=== PATIENT | female | born 1965 | race Two or more races ===

== ENCOUNTER 2024-05-14 13:18 | Outpatient (AMB) | payer MEDICARE, MEDICAID, SELFPAY ==
[2024-05-14 13:47] VITALS: BP 87/65; PULSE 80; RESP 19; TEMP 36.1; O2SAT 98; BMI 33.5
--- NOTE | 2024-05-14 13:47 | ORTHONT_ITS ---
Vital signs 05/14/24 13:47 Height 1.7 m Height Method Stated Weight 96.757 kg Weight Measurement Method Standing Scale BMI 33.5 BP 87/65 L Blood Pressure Source Automatic Cuff Blood Pressure Location Right Upper Arm Position Sitting Respiration 19 Pulse 80 Pulse Source Monitor Temp 96.9 F Temp Source Temporal Artery Scan Pulse Oximetry (%) 98 Oxygen Delivery Method Room Air Med/Allergies Allergies & Medications Allergies tramadol Allergy (Mild, Verified 05/14/24 13:47) TWITCHING AND ITCHING Medication Reconciliation levothyroxine 25 mcg tablet 75 mcg PO QDAY 04/02/21 [History Confirmed 05/14/24] sacubitril 24 mg-valsartan 26 mg tablet (Entresto) 1 tab PO BID 04/02/21 [History Confirmed 05/14/24] furosemide 40 mg tablet 40 mg PO BID #60 tabs 05/05/21 [Rx Confirmed 05/14/24] cyclobenzaprine 5 mg tablet 5 mg PO QHS 01/19/23 [History Confirmed 05/14/24] apixaban 5 mg tablet (Eliquis) 5 mg PO BID #30 tabs 06/15/23 [Rx Confirmed 05/14/24] metoprolol succinate 100 mg tablet,extended release 24 hr 100 mg PO QDAY #30 tabs 06/15/23 [Rx Confirmed 05/14/24] amiodarone 200 mg tablet 200 mg PO DAILY 09/21/23 [History Confirmed 05/14/24] atorvastatin 20 mg tablet 20 mg PO HS 09/21/23 [History Confirmed 05/14/24] dapagliflozin propanediol 10 mg tablet (Farxiga) 10 mg PO QDAY 09/21/23 [History Confirmed 05/14/24] gabapentin 100 mg capsule 100 mg PO HS 09/21/23 [History Confirmed 05/14/24] omeprazole 20 mg capsule,delayed release 20 mg PO DAILY 09/21/23 [History Confirmed 05/14/24] rimegepant 75 mg disintegrating tablet (Nurtec ODT) 75 mg PO Q OTHER DAY 09/21/23 [History Confirmed 05/14/24] spironolactone 25 mg tablet 12.5 mg PO DAILY 09/21/23 [History Confirmed 05/14/24] terconazole 0.4 % vaginal cream 1 appful vaginal QHS 12/25/23 [History Confirmed 05/14/24] Exam Exam Patient is in no acute distress and is cooperative with the examination today. Breathing is nonlabored. In no respiratory distress. Bilateral extremities were evaluated and demonstrates sensation intact to light touch. Palpable pedal pulses are present. No significant edema is present. Bilateral hips were examined. The patient has no pain with log roll of the hips. Internal rotation to 30 degrees and external rotation to 30 degrees is painless. Negative FADIR. The left knee wasexamined. The left knee is in neutral alignment. Range of motion from 0-120 degrees. Knee is stable to varus and valgus as well as AP translation with <5mm. Patient has a negative McMurrays. There is no pain with patellofemoral compression and no crepitus noted. The knee is tender to palpation diffusely. The right knee was also examined. The right knee is in neutral alignment. Range of motion from 0-120 degrees. Knee is stable to varus and valgus as well as AP translation with <5mm. Patient has a negative McMurrays. There is no pain with patellofemoral compression and no crepitus noted. The knee is tender to palpation diffusely. X-rays were reviewed by me. This demonstrates mild joint space narrowing osteoarthritis. There is a ACL screw on the tibia Assessment and Plan Problem List (1) Bilateral primary osteoarthritis of knee: Status: Acute Plan: Patient is a 58-year-old female with mild knee osteoarthritis. She has done well conservative treatment. We will continue with nonoperative treatment. We Will start with her with physical therapy and have given her anti-inflamm atories. We recommend continued nonoperative treatment. I discussed with her that she has minimal arthritis in her knee looks pretty good for her age. She still functioning well. (2) Bilateral knee pain: Status: Acute MA Intake Visit Data Collection New Patient or Established: Established Patient (seen at [facility] within 3 years) Reason for Visit:: F/U XRAYS Seen by Clinical Staff ONLY (RN/MA): No Verbal consent obtained for Telemed visit?: No Internet Marketing Intern Required: No PCP or OBGYN visit in last 3 months: Yes Hx Now: No Do You Feel Safe at Home: Yes Authorities Contacted: N/A Questionairres Past Medical History Past Medical History Have you ever been diagnosed with any of the following: Neurological Problems Seizures: No Cardiology Problems Hypercholesterolemia: Yes Congestive Heart Failure: Yes Edema: No Cellulitis: No Hypertension: Yes Respiratory Problems Chronic Obstructive Pulmonary Disease (COPD): No Asthma: No Tuberculosis: No Sleep Apnea: No Stomache/Intestinal Problems Hepatitis: Yes Gastroesophageal Reflux Disease: Yes Genital/Urinary Problems Renal Disease: No Reproductive Problems Pelvic Inflammatory Disease: No Musculoskeletal Problems Arthritis: Yes Carpal Tunnel Syndrome: Yes Endocrine Problems Diabetes Mellitus Type 1: No Diabetes Mellitus Type 2: Yes Blood Problems Anemia: No Sickle Cell Disease: No Other Problems Hospitalization: No Falls: No Blood Transfusions: No Anesthesia Reactions: No Chicken Pox: Yes Cancer: No Surgical History Pacemaker: Yes Thyroidectomy: Yes Subjective Visit Visit for: follow up visit and knee Immunization / Flu Flu Vaccine in the Last 12 Months: No Flu Vaccine Exclusion Criteria: No Exclusion Criteria History of Present Illness Chief complaint: F/U KNEE PAIN & XRAYS Patient is doing well. She has minimal arthritis. She did well with the last cortisone injection. The pain is minimal and she is here for x-ray results Personal History Red flag PMH: BMI and other (specify) (PACEMAKER) BMI Counceling provided: Yes Pain Pain level (0-10): 3 Pain duration: COMES AND GOES Pain location: inside (medial) and outside (lateral) Pain quality: dull and aching Ambulatory data Ambulatory device: none Treatments Improvement with previous injections: No Improvement with PT: No Improvement with NSAIDS: no Review of Systems Review of Systems: All systems negative unless otherwise noted in HPI.
== END 2024-05-14 14:02 | disposition home or self-care (01) ==
LOC: HODSRG 13:18
PROVIDERS: PCP Internal Medicine; Referring Provider Internal Medicine; Supervising Provider Orthopaedic Surgery Adult Reconstructive Orthopaedic Surgery; Visit Provider Orthopaedic Surgery Adult Reconstructive Orthopaedic Surgery
DX: M17.0 Bilateral primary osteoarthritis of knee (principal); E78.00 Pure hypercholesterolemia, unspecified; I11.0 Hypertensive heart disease with heart failure; I50.9 Heart failure, unspecified; E11.9 Type 2 diabetes mellitus without complications; Z95.0 Presence of cardiac pacemaker
CPT/HCPCS: 99213; G0463

== ENCOUNTER → 2024-05-14 | Outpatient (CLI) | payer MEDICARE, MEDICAID, SELFPAY ==
--- NOTE | 2024-05-14 | XR_ITS ---
Examination: Uterus 2 views Right lateral knee 2 views Right axial knee left axial knee 2 views Technique: Bilateral AP knees standing single view, bilateral PA knees standing single view. Standing right lateral knee left lateral knee 2 views Right axial knee left axial knee 2 views total 6 views Exam date and time: May 14, 2024 and 50 hours Indications: Bilateral knee pain years Findings: Moderate osteopenia Mild narrowing medial joint spaces Status post anterior cruciate repair left knee Mild to moderate osteoarthritis patellofemoral joints Impression: Mild narrowing medial joint spaces Mild to moderate osteoarthritis patellofemoral joints
== END | disposition home or self-care (01) ==
PROVIDERS: PCP Internal Medicine; Referring Provider Orthopaedic Surgery Adult Reconstructive Orthopaedic Surgery; Visit Provider Orthopaedic Surgery Adult Reconstructive Orthopaedic Surgery
DX: M17.0 Bilateral primary osteoarthritis of knee (principal); M25.869 Other specified joint disorders, unspecified knee
CPT/HCPCS: 73564

== ENCOUNTER → 2024-05-20 | Outpatient (CLI) | payer MEDICARE, MEDICAID, SELFPAY ==
[2024-05-20 10:25] LABS: Glucose Estimated Average 174 mg/dL (80-131); Hemoglobin A1C 7.7 % Hgb (4.8-6.0)
[2024-05-20 10:50] LABS: Vitamin B12 495 pg/mL (211-911); Vitamin D 25 Hydroxy Total 27.9 ng/mL (7.3-40.2)
[2024-05-20 10:59] LABS: Alanine Aminotransferase 81 U/L (10-49); Albumin, Serum 4.1 gm/dL (3.5-5.0); Alkaline Phosphatase 152 U/L (46-116); Anion Gap 10 (7-16); Aspartate Amino Transferase 127 U/L (0-34); BUN/Creatinine Ratio 9 Ratio (12-20); Bilirubin,Direct 0.1 mg/dL (0.0-0.3); Bilirubin,Total 0.4 mg/dL (0.3-1.2); Blood Urea Nitrogen 14 mg/dL (9-23); Carbon Dioxide 26.5 mMol/L (20.0-31.0); Cardiac Risk Estimate 5.1 RATIO (3.7-5.6); Chloride 100 mMol/L (98-107); Cholesterol 152 mg/dL (132-200); Creatinine (Component) 1.5 mg/dL (0.6-1.3); Free T4 (Free Thyroxine) 1.61 ng/dL (0.89-1.76); Glucose 173 mg/dL (74-106); HDL Cholesterol 30 mg/dL (40-60); LDL Cholesterol,Calculated 74 mg/dL (0-130); Osmolality,Calculated 276 (275-295); Potassium 4.2 mMol/L (3.4-5.1); Sodium 136 mMol/L (136-145); Thyroid Stimulating Hormone 1.85 uIU/mL (0.55-4.78); Total Protein 7.3 gm/dL (5.7-8.2); Triglycerides 242 mg/dL (30-150); Uric Acid 5.4 mg/dL (3.1-7.8); eGFR 40 See Note
[2024-05-20 11:11] LABS: Creatinine MALB Rnd Ur 128 mg/dL (30-125); Microalbumin, Random Urine < 3 mg/L (0-300)
== END | disposition home or self-care (01) ==
LOC: COPL 09:05
PROVIDERS: PCP Internal Medicine; Referring Provider Internal Medicine; Visit Provider Internal Medicine
DX: I12.9 Hypertensive chronic kidney disease with stage 1 through stage 4 chronic kidney disease, or unspecified chronic kidney disease (principal); E11.22 Type 2 diabetes mellitus with diabetic chronic kidney disease; N18.30 Chronic kidney disease, stage 3 unspecified; E78.5 Hyperlipidemia, unspecified; D51.9 Vitamin B12 deficiency anemia, unspecified; E55.9 Vitamin D deficiency, unspecified
CPT/HCPCS: 36415; 80048; 80061; 80076; 82043; 82306; 82570; 82607; 83036; 84100; 84439; 84443; 84550

== ENCOUNTER → 2024-06-05 | Outpatient (CLI) | payer MEDICARE, MEDICAID, SELFPAY ==
--- NOTE | 2024-06-05 13:00 | XR_ITS ---
Examination: Bone densitometry Date and time of exam:June 05, 2024 1344 hours INDICATIONS: Menopause age 50, diabetic Technique: Lumbar spine and hip total bone mineralization values of an calculated. Peak reference and age match control results have been displayed. Findings: Lumbar spine total bone mineralization is1.262 gm/cm2. This is 2.0 standard deviations above peak reference. This is 3.2 standard deviations above age-matched controls. Hip total bone mineralization is 1.127 gm/cm2 This is 2 standard deviations above peak reference. This is 2.1 standard deviations above age-matched controls Impression: There is normal mineralization based on lumbar spine measurements. There is normal mineralization based on hip measurements Lumbar mineralization is decreased 8.1% compared with June 03, 2019 Hip mineralization is decreased 7.0% compared with June 03, 2019
--- NOTE | 2024-06-05 13:20 | XR_ITS ---
Examination: Screening digital mammography, bilateral Computer aided detection 3-D breast Tomosynthesis, bilateral Date and time of exam: June 05, 2024 1327 hours Compared to mammograms dating to June 18, 2012 Indication: Screening Technique: Nonmagnified MLO, CC views of the breasts to been obtained, reconstructed from 3-D Tomosynthesis images. R2 computer aided detection program utilized for evaluation of suspicious masses and/or abnormal calcifications. 3-D Tomosynthesis images obtained. Findings: Scattered areas of fibroglandular density. Benign calcifications. Left MLO view is degraded secondary to the left axillary pulse generator Impression: BI-RADS Category 0: Incomplete: Additional imaging evaluation Limited study as above Recommend baseline bilateral breast sonography follow-up
== END | disposition home or self-care (01) ==
PROVIDERS: PCP Internal Medicine; Referring Provider Internal Medicine; Visit Provider Internal Medicine
DX: Z12.31 Encounter for screening mammogram for malignant neoplasm of breast (principal); R92.8 Other abnormal and inconclusive findings on diagnostic imaging of breast; M81.0 Age-related osteoporosis without current pathological fracture
CPT/HCPCS: 77063; 77067; 77080

== ENCOUNTER → 2024-06-25 | Outpatient (CLI) | payer MEDICARE, MEDICAID, SELFPAY ==
[2024-06-25 12:38] LABS: Basophils # (Auto) 0.1 Thou/mm3 (0.0-0.2); Basophils % (Auto) 1 % (0-2.5); Eosinophils # (Auto) 0.1 Thou/mm3 (0.0-0.5); Eosinophils % (Auto) 1 % (0-10); Hematocrit 48.6 % (36.0-46.0); Hemoglobin 16.4 g/dL (12.0-16.0); Immature Granulocytes % (Auto) 0 % (0-0); Immature Granulocytes Auto 0.03 Thou/mm3 (0.00-0.00); Lymphocytes # (Auto) 1.9 Thou/mm3 (1.0-4.8); Lymphocytes % (Auto) 22 % (10-50); Mean Corpuscular HGB Conc 33.7 g/dl (31.0-37.0); Mean Corpuscular Hemoglobin 29.3 pg (25.0-35.0); Mean Corpuscular Volume 87 fL (80-100); Monocytes # (Auto) 0.4 Thou/mm3 (0.0-0.8); Monocytes % (Auto) 5 % (0-12); Neutrophils # (Auto) 6.5 Thou/mm3 (1.8-7.7); Neutrophils % (Auto) 72 % (37-80); Nucleated Red Blood Cell % 0 /100 WBC (0); Platelet Count 358 Thou/mm3 (140-440); RDW Standard Deviation 47.3 fL (36.4-46.3)
[2024-06-25 12:58] LABS: Alanine Aminotransferase 71 U/L (10-49); Albumin, Serum 4.4 gm/dL (3.5-5.0); Albumin/Globulin Ratio 1.3 (1.2-2.2); Alkaline Phosphatase 183 U/L (46-116); Anion Gap 6 (7-16); Aspartate Amino Transferase 64 U/L (0-34); BUN/Creatinine Ratio 10 Ratio (12-20); Bilirubin,Total 0.6 mg/dL (0.3-1.2); Blood Urea Nitrogen 14 mg/dL (9-23); Calcium 9.4 mg/dL (8.3-10.6); Calcium (Corrected) 9.4 mg/dL (8.5-10.1); Carbon Dioxide 29.1 mMol/L (20.0-31.0); Chloride 105 mMol/L (98-107); Creatinine (Component) 1.4 mg/dL (0.6-1.3); Globulin 3.5 gm/dL (2.3-3.5); Glucose 200 mg/dL (74-106); Osmolality,Calculated 285 (275-295); Potassium 3.9 mMol/L (3.4-5.1); Sodium 140 mMol/L (136-145); Total Protein 7.9 gm/dL (5.7-8.2); eGFR 44 See Note
== END | disposition home or self-care (01) ==
LOC: COPL 11:50
PROVIDERS: PCP Internal Medicine; Referring Provider Internal Medicine; Visit Provider Internal Medicine
DX: N17.9 Acute kidney failure, unspecified (principal); R94.5 Abnormal results of liver function studies
CPT/HCPCS: 36415; 80053; 85025

== ENCOUNTER → 2024-07-09 | Outpatient (CLI) | payer MEDICARE, MEDICAID, SELFPAY ==
--- NOTE | 2024-07-09 14:00 | XR_ITS ---
Examination: Breast ultrasound complete, bilateral Date and time of exam: July 09, 2024 1412 hours INDICATIONS: Left breast pain beginning 3 weeks ago Technique: Real-time grayscale ultrasonographic imaging bilateral breasts, including all 4 quadrants as well as nipple retroareolar and axillary regions. Findings: Sonographic images right and left breast demonstrated no cystic or solid masses IMPRESSION: BI-RADS Category 1: Negative studies
== END | disposition home or self-care (01) ==
PROVIDERS: PCP Internal Medicine; Referring Provider Internal Medicine; Visit Provider Internal Medicine
DX: R92.313 Mammographic fatty tissue density, bilateral breasts (principal)
CPT/HCPCS: 76641

== ENCOUNTER → 2024-08-13 | Outpatient (CLI) | payer MEDICARE, MEDICAID, SELFPAY ==
--- NOTE | 2024-08-13 | XR_ITS ---
Examination: Bilateral wrists 6 views TECHNIQUE: AP oblique lateral each wrist total 6 views Date and time: August 13, 2024 1337 hours INDICATIONS: Bilateral wrist pain beginning 2 years ago. FINDINGS: Mild osteopenia. No fracture or dislocation involving either wrist No erosive or other significant arthritic change involving either wrist IMPRESSION: No erosive or other significant arthritic change involving either wrist
--- NOTE | 2024-08-13 | XR_ITS ---
Examination: Bilateral hands, 6 views. Technique: AP, Oblique, Lateral each hand total 6 views Date and time of exam: August 13, 2024 1326 hours INDICATIONS: Bilateral wrist and hand pain 2 years Findings: Mild juxta-articular bone demineralization No fracture or dislocation involving either wrist No erosive or other significant arthritic change involving either wrist No opaque foreign bodies IMPRESSION: Mild juxta-articular bone demineralization No erosive or other significant arthritic change involving either wrist
== END | disposition home or self-care (01) ==
PROVIDERS: PCP Internal Medicine; Referring Provider Nurse Practitioner Gerontology; Visit Provider Nurse Practitioner Gerontology
DX: M25.531 Pain in right wrist (principal); M25.532 Pain in left wrist; M79.641 Pain in right hand; M79.642 Pain in left hand
CPT/HCPCS: 73110; 73130

== ENCOUNTER → 2024-08-19 | Outpatient (BNVA) | payer MEDICARE, MEDICAID, SELFPAY | END | disposition home or self-care (01) | PROVIDERS: PCP Internal Medicine; Referring Provider Internal Medicine; Visit Provider Urology | DX: Z09 Encounter for follow-up examination after completed treatment for conditions other than malignant neoplasm (principal); Z87.440 Personal history of urinary (tract) infections; I13.0 Hypertensive heart and chronic kidney disease with heart failure and stage 1 through stage 4 chronic kidney disease, or unspecified chronic kidney disease; E11.22 Type 2 diabetes mellitus with diabetic chronic kidney disease; N18.30 Chronic kidney disease, stage 3 unspecified; I50.9 Heart failure, unspecified; B18.2 Chronic viral hepatitis C; E78.2 Mixed hyperlipidemia; E66.9 Obesity, unspecified; Z68.31 Body mass index [BMI] 31.0-31.9, adult; K21.9 Gastro-esophageal reflux disease without esophagitis | CPT/HCPCS: 81003; 99212; G0463 ==

== ENCOUNTER 2024-09-11 08:58 | Outpatient (RCR) | payer MEDICARE, MEDICAID, SELFPAY ==
--- NOTE | 2024-09-11 09:16 | PT.OIERPT ---
PT OP Initial Eval Patient Information Outpatient Physical Therapy Treatment Date: 09/11/24 Visit Reasons: Back pain Medical Diagnosis: M54.16 Start of Care: 09/11/24 Date of Onset: 12 yrs ago Smoking Status Smoking Status: Former smoker Tobacco Use: Cigarette Years smoked: 15 Initial Assessment Subjective: Pt is 59 yr old female who reports long Hx of LBP says the pain has been getting worse. The pain goes into the legs and into the feet at times. Increased LBP with lifting, prolonged standing and sitting >45'. This limits HH chores and work tolerances. PMH: HTN, DM, thyroidectomy, pacemaker 2020, ACL repair L knee Imaging: MRI from 2022 L5-S1 3 mm right paracentral disc bulge with central posterior annular disc tear, L4-L5 4 mm central lumbar disc bulge with posterior central lumbar annular disc tear Pt goal: I don't know Objective: Trunk ArOM: ? B SB 50% of normal with pain ? Extension: unable ? Flexion: 10 from floor with LBP ? B rotation: 60% with pain on R side ? TTP: moderate paraspinals L5-S1 ? Neuro: R SLR: positive Assessment: Pt presents with trunk flexion sensitivity and overlying myofascial pain ? and TTP around L4-S1 consistent with lumbar DDD with radiculopathy. Pt not likely going to benefit from or participate in skilled therapy due to high tissue irritability and chronicity of ssx. Pt didn't tolerate mechanical traction trial or lumbar extension which is usually what helps this issue. Pt was given HEP printout. Short Term and Senior Living Goals Eval and D/C Treatment Plan Eval and D/C Certification Dates: 09/11/24 to 10/12/24 Procedure Charges OP PT Eval Mod Complex 30 minutes: Yes
== END 2024-10-03 23:59 | disposition home or self-care (01) ==
LOC: CPTX 08:58
PROVIDERS: PCP Physical Medicine & Rehabilitation Pain Medicine; Referring Provider Physical Medicine & Rehabilitation Pain Medicine; Visit Provider Physical Medicine & Rehabilitation Pain Medicine
DX: M54.16 Radiculopathy, lumbar region (principal); I10 Essential (primary) hypertension; E11.9 Type 2 diabetes mellitus without complications
CPT/HCPCS: 97162

== ENCOUNTER → 2024-12-20 | Outpatient (CLI) | payer MEDICARE, MEDICAID, SELFPAY ==
[2024-12-20 08:01] LABS: Collection Type, Urine Clean Catch
[2024-12-20 08:22] LABS: Basophils # (Auto) 0.1 Thou/mm3 (0.0-0.2); Basophils % (Auto) 1 % (0-2.5); Eosinophils # (Auto) 0.1 Thou/mm3 (0.0-0.5); Eosinophils % (Auto) 1 % (0-10); Hematocrit 50.0 % (36.0-46.0); Hemoglobin 17.1 g/dL (12.0-16.0); Immature Granulocytes Auto 0.01 Thou/mm3 (0.00-0.00); Lymphocytes # (Auto) 1.4 Thou/mm3 (1.0-4.8); Lymphocytes % (Auto) 19 % (10-50); Mean Corpuscular HGB Conc 34.2 g/dl (31.0-37.0); Mean Corpuscular Hemoglobin 31.1 pg (25.0-35.0); Mean Corpuscular Volume 91 fL (80-100); Monocytes # (Auto) 0.3 Thou/mm3 (0.0-0.8); Monocytes % (Auto) 4 % (0-12); Neutrophils # (Auto) 5.6 Thou/mm3 (1.8-7.7); Neutrophils % (Auto) 75 % (37-80); Nucleated Red Blood Cell # 0.00 Thou/mm3 (0.00-0.00); Nucleated Red Blood Cell % 0 /100 WBC (0); Platelet Count 340 Thou/mm3 (140-440); RDW Standard Deviation 46.7 fL (36.4-46.3); Red Blood Count 5.49 Miln/mm3 (4.00-5.20); White Blood Count 7.5 Thou/mm3 (3.6-11.0)
[2024-12-20 08:33] LABS: Glucose Estimated Average 143 mg/dL (80-131); Hemoglobin A1C 6.6 % Hgb (4.8-6.0)
[2024-12-20 08:45] LABS: Bilirubin,Urine Negative (Negative); Blood,Urine Negative (Negative); Clarity,Urine Clear (Clear/Hazy); Color,Urine Yellow (Lt Yel-Yel); Glucose, Urine 4+ (Negative); Ketones,Urine Negative (Negative); Leukocyte Esterase,Urine Negative (Negative); Nitrite,Urine Negative (Negative); PH,Urine 5.5 (5.0-7.0); Protein,Urine Trace (Neg - Trace); RBC,Urine 2 /hpf (0-3); Specific Gravity,Urine 1.031 (1.001-1.035); Squamous Epithelial Cell,Urine 1 /hpf (0-5); Urobilinogen,Urine Negative mg/dL (0.0-1.0); WBC,Urine 2 /hpf (0-5)
[2024-12-20 08:51] LABS: Alanine Aminotransferase 92 U/L (10-49); Albumin, Serum 4.4 gm/dL (3.5-5.0); Albumin/Globulin Ratio 1.4 (1.2-2.2); Alkaline Phosphatase 159 U/L (46-116); Anion Gap 10 (7-16); Aspartate Amino Transferase 103 U/L (0-34); BUN/Creatinine Ratio 8 Ratio (12-20); Bilirubin,Total 0.8 mg/dL (0.3-1.2); Blood Urea Nitrogen 10 mg/dL (9-23); Calcium 9.5 mg/dL (8.3-10.6); Calcium (Corrected) 9.5 mg/dL (8.5-10.1); Carbon Dioxide 27.3 mMol/L (20.0-31.0); Cardiac Risk Estimate 5.5 RATIO (3.7-5.6); Chloride 103 mMol/L (98-107); Cholesterol 187 mg/dL (132-200); Creatinine (Component) 1.3 mg/dL (0.6-1.3); Globulin 3.1 gm/dL (2.3-3.5); Glucose 157 mg/dL (74-106); HDL Cholesterol 34 mg/dL (40-60); LDL Cholesterol,Calculated 96 mg/dL (0-130); Osmolality,Calculated 281 (275-295); Potassium 4.0 mMol/L (3.4-5.1); Sodium 140 mMol/L (136-145); Total Protein 7.5 gm/dL (5.7-8.2); Triglycerides 285 mg/dL (30-150); eGFR 48 See Note
== END | disposition home or self-care (01) ==
LOC: COPL 06:59
PROVIDERS: PCP Internal Medicine; Referring Provider Internal Medicine; Visit Provider Internal Medicine
DX: N17.9 Acute kidney failure, unspecified (principal); R94.5 Abnormal results of liver function studies
CPT/HCPCS: 36415; 80053; 80061; 81001; 83036; 85025